=== PATIENT | male | born 1970 | race Caucasian/White ===

== ENCOUNTER 2016-06-19 02:45 | Inpatient (IN) | payer SELFPAY ==
[2016-06-19] VITALS (28 sets, daily range): BP systolic 110–156; BP diastolic 63–91
[~2016-06-19] VITALS: Ht 175.3 cm; Wt 79.6 kg
[~2016-06-19 02:45] MED LIST: ALLO100T PO; ATOR10TA52 PO; CARV25TA55 PO; OXY5T GT
[2016-06-19] MEDS ORDERED: METOPROLOL TARTRATE 50 MG TAB ONE (04:08)
[2016-06-19] MEDS ORDERED: LORazepam 2MG/ML-1ML VIAL ONE (04:16)
[2016-06-19] MEDS ORDERED: SODIUM BICARBONATE 8.4% INJ 50ML SYRINGE ONE (04:23)
[2016-06-19] MEDS ORDERED: LORazepam 2MG/ML-1ML VIAL IV ONE ×2 (04:30→04:45)
[2016-06-19] MEDS ORDERED: ETOMIDATE (2MG/ML) 20ML VIAL IV ONE ×2 (04:35→06:15)
[2016-06-19] MEDS ORDERED: SUCCINYLCHOLINE CHLORIDE 20 MG/ML 10ML VIAL IV ONE ×2 (04:35→06:15)
[2016-06-19] MEDS ORDERED: METOPROLOL TARTRATE 50 MG TAB PO ONE (04:45)
[2016-06-19] MEDS ORDERED: MIDAZOLAM DRIP 100 mg/100mL NS 100 ML IV ONE (04:45)
[2016-06-19] MEDS ORDERED: SODIUM BICARBONATE 8.4 % INJ 50ML VIAL IV ONE ×3 (04:45→08:00)
[2016-06-19 04:48] LABS: Urine Bilirubin Negative (Negative); Urine Color Yellow (Yellow); Urine Hyaline Cast FEW /lpf (0 - 2); Urine Nitrite Negative (Negative); Urine RBC None Seen /hpf (0 - 3); Urine Squamous Epithelial Cell FEW /hpf (<5); Urine Urobilinogen Normal (Negative)
[2016-06-19 04:53] LABS: Urine Blood 1+ /uL (Negative); Urine Glucose 4+ mg/dL (Normal); Urine Ketone 1+ (Negative)
[2016-06-19] MEDS ORDERED: InsuLIN REG 1unit/0.01ml Soln (100units/ml) ONE (05:40)
[2016-06-19] MEDS ORDERED: InsuLIN REG 1unit/0.01ml Soln (100units/ml) IV ONE (06:00)
[2016-06-19] MEDS ORDERED: DEXTROSE (50%) 50ML SYRG IV PRN ×2 (06:00→18:30)
[2016-06-19] MEDS ORDERED: MIDAZOLAM INJECTION 20 MG in SODIUM CHL 0.9% 36 ML IV ONE (06:15)
[2016-06-19] MEDS: SODIUM CHLORIDE 0.9% 1,000 ML IV SCH ×4 (06:18→18:26)
[2016-06-19] MEDS: ACCU-CHEK COMFORT CURVE STRIP VI SCH ×18 (06:27→23:09)
[2016-06-19] MEDS ORDERED: InsuLIN R (HUMAN) 100 UNITS in SODIUM CHL 0.9% 99 ML IV SCH ×2 (06:30→18:19)
[2016-06-19] MEDS ORDERED: PROPOFOL 100 ML IV ONE (07:04)
[2016-06-19 07:23] LABS: Hematocrit 43.3 % (41.0-53.0); Hemoglobin 14.2 g/dL (13.5-17.5); Mean Corpuscular Hemoglobin 29.7 pg (28.0-32.0); Mean Corpuscular Hgb Conc. 32.9 g/dL (32.0-36.0); Mean Corpuscular Volume 90.4 fL (80.0-100.0); Mean Platelet Volume 9.3 fL (7.4-10.4); Platelet Count (auto) 270 10^3/uL (140-450); Red Cell Distribution Width 13.8 % (11.6-16.0); SUSPECT VIEW TRANSMISSION; White Blood Cell 21.5 10^3/uL (4.4-10.8)
[2016-06-19 07:26] LABS: BUN/Creatinine Ratio 18.4; Bilirubin, Total 0.6 mg/dL (0.2-1.0); Calcium 7.5 mg/dL (8.5-10.1); Potassium 4.9 mmol/L (3.5-5.1); Total Protein 5.8 g/dL (6.4-8.2)
[2016-06-19 07:28] LABS: INR 1.01 (0.9-1.15); Partial Thromboplastin Time 29.4 sec (22.64-33.71); Prothrombin Time 10.4 sec (9.37-12.3)
[2016-06-19] MEDS: PROPOFOL 100 ML IV SCH ×2 (07:29→21:00)
[2016-06-19 07:38] LABS: Metamyelocytes % 0; Myelocytes % 0; Promyelocytes % 0; Reactive Lymphocytes 0
[2016-06-19 07:44] LABS: Urine Bilirubin Negative (Negative); Urine Color Yellow (Yellow); Urine Nitrite Negative (Negative); Urine RBC 12 /hpf (0 - 3); Urine Squamous Epithelial Cell FEW /hpf (<5); Urine Urobilinogen Normal (Negative)
[2016-06-19 07:53] LABS: Urine Blood 1+ /uL (Negative); Urine Glucose 4+ mg/dL (Normal); Urine Ketone 1+ (Negative)
[2016-06-19] MEDS ORDERED: VANCOMYCIN 1GM/250ML D5W 250 ML IV ONE ×2 (08:00→10:00)
[2016-06-19] MEDS ORDERED: SODIUM CHLORIDE 0.9% 3,000 ML IV ONE (08:00)
[2016-06-19] MEDS ORDERED: SODIUM BICARBONATE 50ML VIAL 50 ML in SOD CHL 0.45% 1,000 ML IV ONE (08:00)
[2016-06-19] MEDS ORDERED: VANCOMYCIN PER PHARMACY 0 MG IV SCH (08:00)
[2016-06-19 08:10] LABS: Lactic Acid 5.5 mmol/L (0.4-2.0)
[2016-06-19 08:11] LABS: REFLEX LACTIC ACID YES OR NO YES
[2016-06-19] MEDS ORDERED: LACTULOSE 20Gm/30ML SOLN PO PRN (08:15)
[2016-06-19 08:21] LABS: Platelet Estimate Adequate
[2016-06-19 08:22] LABS: RBC Morphology Normal
[2016-06-19] MEDS ORDERED: ENOXAPARIN SOD 80 MG/0.8ML SYRINGE SC SCH (08:30)
[2016-06-19] MEDS: ENOXAPARIN SOD 80 MG/0.8ML SYRINGE SC SCH (08:43)
[2016-06-19 08:51] LABS: B-Type Natriuretic Peptide 87.33 pg/mL (0-100)
[2016-06-19 09:06] LABS: Temperature: 22.1 C (20.0-25.0)
[2016-06-19] MEDS ORDERED: SODIUM CHLORIDE 0.9% 1,000 ML IV SCH (09:46)
[2016-06-19] MEDS: LEVOFLOXACIN 500MG 100 ML IV SCH (09:59)
[2016-06-19] MEDS: MIDAZOLAM DRIP 100 mg/100mL NS 100 ML IV SCH (09:59)
[2016-06-19] MEDS: ENALAPRIL MALEATE 2.5 MG TAB PO SCH (10:00)
[2016-06-19] MEDS ORDERED: ENOXAPARIN SOD 30 MG/0.3 ML SYRINGE SC SCH (10:00)
[2016-06-19] MEDS: METOPROLOL TARTRATE 25 MG TAB PO SCH ×2 (10:00→22:00)
[2016-06-19 10:23] LABS: Lactic Acid 4.3 mmol/L (0.4-2.0)
[2016-06-19 10:25] LABS: REFLEX LACTIC ACID YES OR NO NO
[2016-06-19] MEDS: PANTOPRAZOLE SODIUM 40 MG/10 ML VIAL IV SCH (10:30)
[2016-06-19] MEDS: ASPirin 81 mg TAB PO SCH (10:40)
[2016-06-19 12:38] LABS: Lactic Acid 3.1 mmol/L (0.4-2.0)
[2016-06-19 12:42] LABS: REFLEX LACTIC ACID YES OR NO NO
[2016-06-19 12:52] LABS: BUN/Creatinine Ratio 19.4; Calcium 6.4 mg/dL (8.5-10.1)
[2016-06-19 13:06] LABS: Potassium 2.9 mmol/L (3.5-5.1)
[2016-06-19] MEDS: POTASSIUM CHL 20MEQ/100ML 100 ML IV SCH ×2 (13:56→15:45)
[2016-06-19] MEDS ORDERED: InsuLIN R (HUMAN) 100 UNITS in SODIUM CHL 0.9% 99 ML IV PRN ×2 (18:19→18:31)
[2016-06-19 18:26] LABS: BUN/Creatinine Ratio 18.8; Calcium 6.2 mg/dL (8.5-10.1); Potassium 3.4 mmol/L (3.5-5.1)
[2016-06-19] MEDS: ATORVASTATIN 20 MG TAB PO SCH (22:03)
[2016-06-19 22:52] LABS: BUN/Creatinine Ratio 19.7; Calcium 6.8 mg/dL (8.5-10.1)
[2016-06-20] VITALS (85 sets, daily range): BP systolic 102–199; BP diastolic 56–132
[2016-06-20] MEDS ORDERED: POTASSIUM CHL 20MEQ/100ML 200 ML IV ONE (00:13)
[2016-06-20] MEDS: POTASSIUM CHL 20MEQ/100ML 100 ML IV SCH ×5 (00:15→16:30)
[2016-06-20] MEDS: SODIUM CHLORIDE 0.9% 1,000 ML IV SCH ×4 (00:35→21:06)
[2016-06-20] MEDS: ACCU-CHEK COMFORT CURVE STRIP VI SCH ×13 (01:05→20:00)
[2016-06-20 04:22] LABS: Basophils # (auto) 0 uL; Basophils % (auto) 0.3 % (0.0-2.0); Eosinophils # (auto) 0.2 uL; Eosinophils % (auto) 1.6 % (0.0-7.0); Hematocrit 43.2 % (41.0-53.0); Hemoglobin 14.8 g/dL (13.5-17.5); Lymphocytes # (auto) 1.4 uL; Lymphocytes % (auto) 10.6 % (10.0-50.0); Mean Corpuscular Hemoglobin 29.8 pg (28.0-32.0); Mean Corpuscular Hgb Conc. 34.1 g/dL (32.0-36.0); Mean Corpuscular Volume 87.3 fL (80.0-100.0); Mean Platelet Volume 8.3 fL (7.4-10.4); Monocytes # (auto) 0.9 uL; Monocytes % (auto) 6.7 % (0.0-12.0); Neutrophils # (auto) 10.7 uL; Neutrophils % (auto) 80.8 % (37.0-80.0); Platelet Count (auto) 188 10^3/uL (140-450); Red Cell Distribution Width 13.8 % (11.6-16.0); White Blood Cell 13.3 10^3/uL (4.4-10.8)
[2016-06-20] MEDS: PROPOFOL 100 ML IV SCH (05:04)
[2016-06-20 05:22] LABS: Albumin 1.8 g/dL (3.4-5.0); BUN/Creatinine Ratio 19.1; Bilirubin, Total 0.3 mg/dL (0.2-1.0); Calcium 7.2 mg/dL (8.5-10.1); Magnesium 2.2 mg/dL (1.6-2.6); Potassium 3.4 mmol/L (3.5-5.1); Total Protein 5.1 g/dL (6.4-8.2)
[2016-06-20] MEDS: MIDAZOLAM DRIP 100 mg/100mL NS 100 ML IV SCH (06:38)
[2016-06-20] MEDS: ENOXAPARIN SOD 80 MG/0.8ML SYRINGE SC SCH (08:15)
[2016-06-20] MEDS: LEVOFLOXACIN 500MG 100 ML IV SCH (08:15)
[2016-06-20] MEDS ORDERED: VANCOMYCIN 1GM/250ML D5W 250 ML IV ONE ×2 (08:45→10:00)
[2016-06-20] MEDS: PANTOPRAZOLE SODIUM 40 MG/10 ML VIAL IV SCH (09:42)
[2016-06-20] MEDS: LEVOFLOXACIN 250MG 50 ML IV SCH (09:42)
[2016-06-20] MEDS: ENALAPRIL MALEATE 2.5 MG TAB PO SCH (09:43)
[2016-06-20] MEDS: METOPROLOL TARTRATE 25 MG TAB PO SCH ×2 (09:43→21:37)
[2016-06-20] MEDS: ASPirin 81 mg TAB PO SCH (09:43)
[2016-06-20] MEDS ORDERED: INSULIN DETEMIR(LEVEMIR) 1unit/0.01ml Soln (100units/ml) SC ONE (11:00)
[2016-06-20] MEDS ORDERED: METOPROLOL TARTRATE 1MG/1ML-5ML VIAL IV PRN (11:30)
[2016-06-20] MEDS ORDERED: DEXTROSE (50%) 50ML SYRG IV PRN (13:30)
[2016-06-20 13:43] LABS: Basophils # (auto) 0 uL; Basophils % (auto) 0.3 % (0.0-2.0); Eosinophils # (auto) 0.1 uL; Eosinophils % (auto) 0.9 % (0.0-7.0); Hematocrit 40.8 % (41.0-53.0); Hemoglobin 13.9 g/dL (13.5-17.5); Lymphocytes # (auto) 1.2 uL; Lymphocytes % (auto) 9.2 % (10.0-50.0); Mean Corpuscular Hemoglobin 29.7 pg (28.0-32.0); Mean Corpuscular Volume 87.3 fL (80.0-100.0); Mean Platelet Volume 8.8 fL (7.4-10.4); Monocytes # (auto) 0.7 uL; Monocytes % (auto) 5.2 % (0.0-12.0); Neutrophils % (auto) 84.4 % (37.0-80.0); Platelet Count (auto) 177 10^3/uL (140-450); Red Cell Distribution Width 14.1 % (11.6-16.0); White Blood Cell 13.1 10^3/uL (4.4-10.8)
[2016-06-20 14:04] LABS: Albumin 1.6 g/dL (3.4-5.0); BUN/Creatinine Ratio 18.7; Calcium 6.9 mg/dL (8.5-10.1); Potassium 3.3 mmol/L (3.5-5.1)
[2016-06-20 14:07] LABS: Bilirubin, Total 0.3 mg/dL (0.2-1.0); Total Protein 4.9 g/dL (6.4-8.2)
[2016-06-20] MEDS: InsuLIN REG 1unit/0.01ml Soln (100units/ml) SC SCH ×2 (16:00→20:00)
[2016-06-20] MEDS: ATORVASTATIN 20 MG TAB PO SCH (21:37)
[2016-06-21] VITALS (38 sets, daily range): BP systolic 106–169; BP diastolic 46–101
[2016-06-21] MEDS: ALBUTEROL SULF 2.5 MG/0.5ML(0.5%) NEB SOLN NEB SCH ×4 (00:16→18:50)
[2016-06-21 03:52] LABS: Basophils # (auto) 0 uL; Basophils % (auto) 0.4 % (0.0-2.0); Eosinophils # (auto) 0 uL; Eosinophils % (auto) 0.5 % (0.0-7.0); Hematocrit 38.8 % (41.0-53.0); Hemoglobin 13.3 g/dL (13.5-17.5); Lymphocytes % (auto) 11.3 % (10.0-50.0); Mean Corpuscular Hemoglobin 29.6 pg (28.0-32.0); Mean Corpuscular Hgb Conc. 34.2 g/dL (32.0-36.0); Mean Corpuscular Volume 86.7 fL (80.0-100.0); Mean Platelet Volume 8.8 fL (7.4-10.4); Monocytes # (auto) 0.6 uL; Monocytes % (auto) 6.9 % (0.0-12.0); Neutrophils # (auto) 6.9 uL; Neutrophils % (auto) 80.9 % (37.0-80.0); Platelet Count (auto) 127 10^3/uL (140-450); Red Cell Distribution Width 14.4 % (11.6-16.0); White Blood Cell 8.5 10^3/uL (4.4-10.8)
[2016-06-21] MEDS: InsuLIN REG 1unit/0.01ml Soln (100units/ml) SC SCH ×5 (04:00→20:30)
[2016-06-21] MEDS: ACCU-CHEK COMFORT CURVE STRIP VI SCH ×5 (04:00→20:00)
[2016-06-21 05:13] LABS: Albumin 1.6 g/dL (3.4-5.0); Calcium 7.4 mg/dL (8.5-10.1); Potassium 3.5 mmol/L (3.5-5.1)
[2016-06-21 05:15] LABS: Bilirubin, Total 0.4 mg/dL (0.2-1.0); Total Protein 4.8 g/dL (6.4-8.2)
[2016-06-21] MEDS: MIDAZOLAM DRIP 100 mg/100mL NS 100 ML IV SCH (06:38)
[2016-06-21] MEDS: PROPOFOL 100 ML IV SCH (07:29)
[2016-06-21] MEDS: SODIUM CHLORIDE 0.9% 1,000 ML IV SCH (08:33)
[2016-06-21] MEDS: ASPirin 81 mg TAB PO SCH (09:53)
[2016-06-21] MEDS: METOPROLOL TARTRATE 25 MG TAB PO SCH ×2 (09:53→21:34)
[2016-06-21] MEDS: LEVOFLOXACIN 250MG 50 ML IV SCH (09:54)
[2016-06-21] MEDS: ENALAPRIL MALEATE 2.5 MG TAB PO SCH (09:54)
[2016-06-21] MEDS: PANTOPRAZOLE SODIUM 40 MG/10 ML VIAL IV SCH (09:54)
[2016-06-21] MEDS ORDERED: ENOXAPARIN SOD 80 MG/0.8ML SYRINGE SC SCH (10:00)
[2016-06-21] MEDS ORDERED: VANCOMYCIN 1GM/250ML D5W 250 ML IV SCH (11:00)
[2016-06-21] MEDS ORDERED: DEXTROSE (50%) 50ML SYRG IV PRN (11:15)
[2016-06-21] MEDS ORDERED: LORazepam 0.5 MG TAB PO ONE (11:15)
[2016-06-21] MEDS ORDERED: LORazepam 0.5 MG TAB PO PRN (11:15)
[2016-06-21] MEDS ORDERED: HYDROcodone-ACET 10/325MG TAB PO ONE (11:15)
[2016-06-21] MEDS ORDERED: SODIUM CHLORIDE 0.9% 1,000 ML IV SCH (11:46)
[2016-06-21] MEDS: GABAPENTIN 300 MG CAP PO SCH ×2 (14:09→21:33)
[2016-06-21 15:31] LABS: Hepatitis B Surface Antibody Negative
[2016-06-21] MEDS: ATORVASTATIN 20 MG TAB PO SCH (21:33)
[2016-06-21] MEDS ORDERED: INSULIN DETEMIR(LEVEMIR) 1unit/0.01ml Soln (100units/ml) SC SCH (22:00)
[2016-06-22] VITALS (29 sets, daily range): BP systolic 114–168; BP diastolic 68–111
[2016-06-22] MEDS: InsuLIN REG 1unit/0.01ml Soln (100units/ml) SC SCH ×5 (00:04→21:28)
[2016-06-22] MEDS: ALBUTEROL SULF 2.5 MG/0.5ML(0.5%) NEB SOLN NEB SCH ×4 (00:42→20:15)
[2016-06-22 04:21] LABS: Basophils # (auto) 0 uL; Basophils % (auto) 0.4 % (0.0-2.0); Eosinophils # (auto) 0.2 uL; Hematocrit 41.8 % (41.0-53.0); Hemoglobin 14.7 g/dL (13.5-17.5); Lymphocytes # (auto) 1.3 uL; Lymphocytes % (auto) 16.2 % (10.0-50.0); Mean Corpuscular Hemoglobin 30.4 pg (28.0-32.0); Mean Corpuscular Hgb Conc. 35.2 g/dL (32.0-36.0); Mean Corpuscular Volume 86.4 fL (80.0-100.0); Mean Platelet Volume 9.6 fL (7.4-10.4); Monocytes # (auto) 0.5 uL; Monocytes % (auto) 6.1 % (0.0-12.0); Neutrophils # (auto) 5.8 uL; Neutrophils % (auto) 74.3 % (37.0-80.0); Platelet Count (auto) 125 10^3/uL (140-450); Red Cell Distribution Width 13.8 % (11.6-16.0); White Blood Cell 7.9 10^3/uL (4.4-10.8)
[2016-06-22] MEDS: ACCU-CHEK COMFORT CURVE STRIP VI SCH ×5 (04:27→21:29)
[2016-06-22 04:36] LABS: Lactic Acid 2.2 mmol/L (0.4-2.0)
[2016-06-22 04:45] LABS: REFLEX LACTIC ACID YES OR NO NO
[2016-06-22] MEDS: HYDROcodone-ACET 10/325MG TAB PO PRN ×3 (04:46→17:46)
[2016-06-22 04:53] LABS: Albumin 1.6 g/dL (3.4-5.0); BUN/Creatinine Ratio 18.1; Bilirubin, Total 0.3 mg/dL (0.2-1.0); Calcium 7.8 mg/dL (8.5-10.1); Total Protein 5.6 g/dL (6.4-8.2)
[2016-06-22 05:03] LABS: Potassium 2.8 mmol/L (3.5-5.1)
[2016-06-22] MEDS ORDERED: POTASSIUM CHL 20 Meq TABLET PO ONE ×2 (05:45→14:15)
[2016-06-22] MEDS: GABAPENTIN 300 MG CAP PO SCH ×2 (06:12→14:00)
[2016-06-22] MEDS ORDERED: DEXTROSE (50%) 50ML SYRG IV PRN (10:00)
[2016-06-22] MEDS ORDERED: ENOXAPARIN SOD 80 MG/0.8ML SYRINGE SC SCH (10:00)
[2016-06-22] MEDS: ASPirin 81 mg TAB PO SCH (10:57)
[2016-06-22] MEDS: ENALAPRIL MALEATE 2.5 MG TAB PO SCH (10:58)
[2016-06-22] MEDS: LEVOFLOXACIN 250MG 50 ML IV SCH (11:03)
[2016-06-22] MEDS: PANTOPRAZOLE 40 MG TAB PO SCH (11:03)
[2016-06-22] MEDS: SODIUM CHLORIDE 0.9% 1,000 ML IV SCH (11:32)
[2016-06-22] MEDS ORDERED: ENOXAPARIN SOD 40 MG/0.4 ML SYRINGE SC ONE (11:45)
[2016-06-22] MEDS: VANCOMYCIN 1,250 MG in D5W 5% 250 ML IV SCH (12:41)
[2016-06-22] MEDS: METOPROLOL TARTRATE 25 MG TAB PO SCH (12:50)
[2016-06-22] MEDS ORDERED: ALPRAZolam 0.5 MG TAB PO PRN (17:30)
[2016-06-22] MEDS ORDERED: OXYCODONE W/ ACETAMINOPHEN 5/325MG TABLET PO PRN (17:30)
[2016-06-22] MEDS: ALLOPURINOL 100 MG TAB PO SCH (18:50)
[2016-06-22] MEDS ORDERED: LEVO100T8 PO (19:30)
[2016-06-22] MEDS ORDERED: PERCOT PO (19:30)
[2016-06-22] MEDS ORDERED: PREG150C PO (19:30)
[2016-06-22] MEDS ORDERED: ALPR1TAB2 PO (19:30)
[2016-06-22] MEDS: INSULIN DETEMIR(LEVEMIR) 1unit/0.01ml Soln (100units/ml) SC SCH (21:29)
[2016-06-22] MEDS: PREGABALIN CAPSULE 75 MG CAP PO SCH (22:00)
[2016-06-22] MEDS: CARVEDILOL 12.5 MG TAB PO SCH (22:00)
[2016-06-22] MEDS: ATORVASTATIN 20 MG TAB PO SCH (22:00)
[2016-06-23] VITALS (13 sets, daily range): BP systolic 128–152; BP diastolic 71–113
[2016-06-23] MEDS: SODIUM CHLORIDE 0.9% 1,000 ML IV SCH (00:33)
[2016-06-23] MEDS: HYDROcodone-ACET 10/325MG TAB PO PRN ×2 (02:08→10:00)
[2016-06-23 03:58] LABS: BUN/Creatinine Ratio 14.5; Potassium 3.1 mmol/L (3.5-5.1)
[2016-06-23] MEDS: VANCOMYCIN 1,250 MG in D5W 5% 250 ML IV SCH (05:15)
[2016-06-23] MEDS: ALBUTEROL SULF 2.5 MG/0.5ML(0.5%) NEB SOLN NEB SCH ×2 (06:18)
[2016-06-23] MEDS: InsuLIN REG 1unit/0.01ml Soln (100units/ml) SC SCH (06:24)
[2016-06-23] MEDS ORDERED: POTASSIUM CHL 20 Meq TABLET PO ONE (06:30)
[2016-06-23] MEDS ORDERED: LEVOTHYROXINE SODIUM 100 MCG TAB PO SCH (07:00)
[2016-06-23] MEDS: ACCU-CHEK COMFORT CURVE STRIP VI SCH (07:00)
[2016-06-23] MEDS: ALLOPURINOL 100 MG TAB PO SCH (09:19)
[2016-06-23] MEDS: PREGABALIN CAPSULE 75 MG CAP PO SCH (09:19)
[2016-06-23] MEDS: ENALAPRIL MALEATE 2.5 MG TAB PO SCH (09:19)
[2016-06-23] MEDS: ASPirin 81 mg TAB PO SCH (09:19)
[2016-06-23] MEDS: CARVEDILOL 12.5 MG TAB PO SCH (09:20)
[2016-06-23] MEDS: PANTOPRAZOLE 40 MG TAB PO SCH (09:20)
[2016-06-23] MEDS: INSULIN DETEMIR(LEVEMIR) 1unit/0.01ml Soln (100units/ml) SC SCH (09:23)
[2016-06-23] MEDS ORDERED: ENOXAPARIN SOD 40 MG/0.4 ML SYRINGE SC SCH (10:00)
[2016-06-23] MEDS ORDERED: LEVOFLOXACIN 750MG 150 ML IV SCH (10:00)
[2016-06-23] MEDS ORDERED: LEVO750T3 PO (10:01)
[2016-06-23] MEDS ORDERED: CARV25TA55 PO (10:01)
[2016-06-23] MEDS ORDERED: LEVO100T8 PO (10:01)
[2016-06-23] MEDS ORDERED: ATOR20TA50 PO (10:01)
[2016-06-23] MEDS ORDERED: ASPI81CH43 PO (10:01)
[2016-06-23] MEDS ORDERED: INSUINJ37 SC (10:07)
== END 2016-06-23 11:25 | disposition home or self-care (01) | DRG 871 ==
LOC: EDBD 02:45 → ER 02:45 → TELE 02:46 → ICU WEST 17:19
PROVIDERS: ADMIT Family Medicine; ATTEND Internal Medicine
PROC: 5A1945Z Respiratory Ventilation, 24-96 Consecutive Hours (ICD-10-PCS; principal; 2016-06-19)
PROC: 0BH17EZ Insertion of Endotracheal Airway into Trachea, Via Natural or Artificial Opening (ICD-10-PCS; 2016-06-19)
DX: A41.9 Sepsis, unspecified organism (principal); R65.21 Severe sepsis with septic shock; N17.0 Acute kidney failure with tubular necrosis; J96.00 Acute respiratory failure, unspecified whether with hypoxia or hypercapnia; E13.10 Other specified diabetes mellitus with ketoacidosis without coma; G93.41 Metabolic encephalopathy; E87.2 Acidosis; N39.0 Urinary tract infection, site not specified; E87.1 Hypo-osmolality and hyponatremia; I42.0 Dilated cardiomyopathy; I13.0 Hypertensive heart and chronic kidney disease with heart failure and stage 1 through stage 4 chronic kidney disease, or unspecified chronic kidney disease; N18.9 Chronic kidney disease, unspecified; E11.22 Type 2 diabetes mellitus with diabetic chronic kidney disease; E11.21 Type 2 diabetes mellitus with diabetic nephropathy; D64.9 Anemia, unspecified; E87.6 Hypokalemia; E86.0 Dehydration; E78.5 Hyperlipidemia, unspecified; F41.9 Anxiety disorder, unspecified; F15.10 Other stimulant abuse, uncomplicated; F17.210 Nicotine dependence, cigarettes, uncomplicated; I50.9 Heart failure, unspecified; E03.9 Hypothyroidism, unspecified; F12.10 Cannabis abuse, uncomplicated; J44.9 Chronic obstructive pulmonary disease, unspecified; Z59.0 Homelessness; Z79.4 Long term (current) use of insulin; Z82.49 Family history of ischemic heart disease and other diseases of the circulatory system; Z83.3 Family history of diabetes mellitus; Z86.73 Personal history of transient ischemic attack (TIA), and cerebral infarction without residual deficits; I25.2 Old myocardial infarction; Z91.19 Patient's noncompliance with other medical treatment and regimen; Z95.0 Presence of cardiac pacemaker; Z95.810 Presence of automatic (implantable) cardiac defibrillator; Z91.14 Patient's other noncompliance with medication regimen
CPT/HCPCS: 36415; 36600; 51702; 70450; 71010; 80048; 80053; 80061; 80202; 81001; 82010; 82805; 82947; 82962; 83036; 83605; 83735; 83880; 83930; 84300; 84443; 84484; 85007; 85025; 85027; 85379; 85610; 85730; 86704; 86706; 86708; 86803; 87040; 87070; 87077; 87081; 87086; 87186; 87205; 87340; 87400; 93005; 93306; 93970; 94002; 94003; 94640; 96365; 96366; 96367; 96368; 96375; 97001; 99291; A4565; C9113; G0434; J0330; J1815; J1956; J2250; J2704; J3480; J7060

== ENCOUNTER 2016-08-02 00:39 | Emergency (ER) | payer MEDICAID ==
[~2016-08-02] VITALS: Ht 172.7 cm; Wt 83.9 kg
[~2016-08-02 00:39] MED LIST changes: +ALPR1TAB2 PO; +ASPI81CH43 PO; -ATOR10TA52 PO; +ATOR20TA50 PO; +INSUINJ37 SC; +LEVO100T8 PO; +LEVO750T3 PO; -OXY5T GT; +PERCOT PO; +PREG150C PO
[2016-08-02 01:36] LABS: Basophils # (auto) 0 uL; Basophils % (auto) 0.4 % (0.0-2.0); Eosinophils # (auto) 0.5 uL; Hematocrit 30.4 % (41.0-53.0); Hemoglobin 10.3 g/dL (13.5-17.5); Lymphocytes # (auto) 2.3 uL; Lymphocytes % (auto) 30.7 % (10.0-50.0); Mean Corpuscular Hemoglobin 29.8 pg (28.0-32.0); Mean Corpuscular Hgb Conc. 33.9 g/dL (32.0-36.0); Mean Corpuscular Volume 87.7 fL (80.0-100.0); Mean Platelet Volume 9.3 fL (7.4-10.4); Monocytes # (auto) 0.8 uL; Monocytes % (auto) 10.3 % (0.0-12.0); Neutrophils # (auto) 3.9 uL; Neutrophils % (auto) 51.6 % (37.0-80.0); Platelet Count (auto) 186 10^3/uL (140-450); Red Cell Distribution Width 14.4 % (11.6-16.0); White Blood Cell 7.6 10^3/uL (4.4-10.8)
[2016-08-02 02:38] LABS: Albumin 2.3 g/dL (3.4-5.0); BUN/Creatinine Ratio 23.6; Calcium 7.7 mg/dL (8.5-10.1); Potassium 4.9 mmol/L (3.5-5.1)
[2016-08-02 02:40] LABS: Bilirubin, Total 0.2 mg/dL (0.2-1.0); Total Protein 5.8 g/dL (6.4-8.2)
[2016-08-02 05:54] VITALS: BP 145/89
[2016-08-02] MEDS ORDERED: HYDROcodone-ACET 10/325MG TAB PO ONE (06:45)
== END 2016-08-02 06:57 | disposition home or self-care (01) ==
LOC: ER 00:41
DX: S83.91XA Sprain of unspecified site of right knee, initial encounter (principal); F17.210 Nicotine dependence, cigarettes, uncomplicated; F15.10 Other stimulant abuse, uncomplicated; E11.9 Type 2 diabetes mellitus without complications; I11.0 Hypertensive heart disease with heart failure; I50.9 Heart failure, unspecified; E78.5 Hyperlipidemia, unspecified; E07.9 Disorder of thyroid, unspecified; M10.9 Gout, unspecified; Z79.4 Long term (current) use of insulin; V09.9XXA Pedestrian injured in unspecified transport accident, initial encounter; Y93.89 Activity, other specified; Y99.8 Other external cause status; Y92.89 Other specified places as the place of occurrence of the external cause; Z79.82 Long term (current) use of aspirin; Z86.73 Personal history of transient ischemic attack (TIA), and cerebral infarction without residual deficits; Z88.0 Allergy status to penicillin; Z95.810 Presence of automatic (implantable) cardiac defibrillator
CPT/HCPCS: 29505; 36415; 72125; 73562; 80053; 85025

== ENCOUNTER 2016-08-12 18:33 | Emergency (ER) | payer MEDICAID ==
[~2016-08-12] VITALS: Ht 172.7 cm; Wt 78.0 kg
[2016-08-12 18:43] VITALS: BP 103/72
[2016-08-12] MEDS ORDERED: KETOROLAC TROMETH 60MG/2ML VIAL IM ONE (19:15)
== END 2016-08-12 20:03 | disposition home or self-care (01) ==
LOC: ER 18:33
CPT/HCPCS: 96372 ×2; 99283; J1885 ×2

== ENCOUNTER 2016-09-12 21:36 | Emergency (ER) | payer MEDICAID ==
[~2016-09-12] VITALS: Ht 175.3 cm; Wt 79.4 kg
[2016-09-12 22:20] LABS: Basophils # (auto) 0.1 uL; Basophils % (auto) 0.7 % (0.0-2.0); DEFINITIVE VIEW TRANSMISSION; Eosinophils # (auto) 0.7 uL; Hematocrit 33.5 % (41.0-53.0); Hemoglobin 11.5 g/dL (13.5-17.5); Lymphocytes # (auto) 2.1 uL; Lymphocytes % (auto) 25.1 % (10.0-50.0); Mean Corpuscular Hemoglobin 30.6 pg (28.0-32.0); Mean Corpuscular Hgb Conc. 34.2 g/dL (32.0-36.0); Mean Corpuscular Volume 89.6 fL (80.0-100.0); Mean Platelet Volume 7.9 fL (7.4-10.4); Monocytes # (auto) 0.7 uL; Monocytes % (auto) 8.8 % (0.0-12.0); Neutrophils # (auto) 4.6 uL; Neutrophils % (auto) 56.4 % (37.0-80.0); Platelet Count (auto) 298 10^3/uL (140-450); Red Cell Distribution Width 14.4 % (11.6-16.0); White Blood Cell 8.2 10^3/uL (4.4-10.8)
[2016-09-12 22:44] LABS: Partial Thromboplastin Time 22.6 sec (22.64-33.71)
[2016-09-12 22:47] LABS: INR 0.85 (0.9-1.15); Prothrombin Time 9.3 sec (9.37-12.3)
[2016-09-12 22:50] LABS: Albumin 1.9 g/dL (3.4-5.0); Anion Gap 14 (5-15); Aspartate Aminotransferase 39 U/L (15-37); BUN/Creatinine Ratio 17.1; Blood Urea Nitrogen 25 mg/dL (7-18); Calcium 8.3 mg/dL (8.5-10.1); Carbon Dioxide 21 mmol/L (21-32); Chloride 103 mmol/L (98-107); GFR African American 66 mL/min; GFR Non-African American 55 mL/min; Glucose 201 mg/dL (74-106); Potassium 3.4 mmol/L (3.5-5.1); Sodium 138 mmol/L (136-145)
[2016-09-12 22:55] LABS: Alkaline Phosphatase 243 U/L (45-117); Bilirubin, Total < 0.1 mg/dL (0.2-1.0); Total Protein 5.6 g/dL (6.4-8.2)
[2016-09-12 23:35] LABS: B-Type Natriuretic Peptide 18.82 pg/mL (0-100)
[2016-09-12 23:37] LABS: Temperature: 22.9 C (20.0-25.0)
[2016-09-13 01:01] VITALS: BP 142/81
[2016-09-13] MEDS ORDERED: LORazepam 2MG/ML-1ML VIAL IV ONE (01:30)
[2016-09-13] MEDS ORDERED: ASPirin 81 mg TAB PO ONE (01:30)
== END 2016-09-13 02:33 | disposition home or self-care (01) ==
LOC: EDBD 21:36 → ER 21:42
DX: R07.89 Other chest pain (principal); E43 Unspecified severe protein-calorie malnutrition; Z68.25 Body mass index [BMI] 25.0-25.9, adult; I11.0 Hypertensive heart disease with heart failure; I50.9 Heart failure, unspecified; E11.9 Type 2 diabetes mellitus without complications; M10.9 Gout, unspecified; E78.5 Hyperlipidemia, unspecified; E07.9 Disorder of thyroid, unspecified; Z90.49 Acquired absence of other specified parts of digestive tract; F17.210 Nicotine dependence, cigarettes, uncomplicated; F12.10 Cannabis abuse, uncomplicated; Z88.0 Allergy status to penicillin; Z79.899 Other long term (current) drug therapy; F15.10 Other stimulant abuse, uncomplicated; Z79.4 Long term (current) use of insulin; Z79.82 Long term (current) use of aspirin
CPT/HCPCS: 36415; 71010; 80053; 80307; 83880; 84484; 85025; 85610; 85730; 93005; 96374; 99285; J2060

== ENCOUNTER 2016-12-05 21:46 | Emergency (ER) | payer MEDICAID ==
[~2016-12-05] VITALS: Ht 160 cm; Wt 77.1 kg
[~2016-12-05 21:46] MED LIST changes: +LEVO750T2 PO; -LEVO750T3 PO
[2016-12-05] MEDS ORDERED: DEXTROSE 50% SYRINGE 50 ML IV ONE (22:13)
[2016-12-05] MEDS ORDERED: SODIUM CHLORIDE 0.9% 1,000 ML IVB ONE (22:25)
[2016-12-05] MEDS ORDERED: DEXTROSE (50%) 50ML SYRG IV ONE (22:30)
[2016-12-05 22:32] LABS: Basophils # (auto) 0.1 uL; Basophils % (auto) 0.6 % (0.0-2.0); CONDITION Y; Eosinophils # (auto) 0.5 uL; Eosinophils % (auto) 6.1 % (0.0-7.0); Hematocrit 50.3 % (41.0-53.0); Hemoglobin 17.3 g/dL (13.5-17.5); Lymphocytes # (auto) 2.4 uL; Lymphocytes % (auto) 26.2 % (10.0-50.0); Mean Corpuscular Hemoglobin 30.6 pg (28.0-32.0); Mean Corpuscular Hgb Conc. 34.4 g/dL (32.0-36.0); Mean Corpuscular Volume 88.9 fL (80.0-100.0); Mean Platelet Volume 8.6 fL (7.4-10.4); Monocytes # (auto) 0.6 uL; Monocytes % (auto) 6.5 % (0.0-12.0); Neutrophils # (auto) 5.4 uL; Neutrophils % (auto) 60.6 % (37.0-80.0); Platelet Count (auto) 323 10^3/uL (140-450); Red Cell Distribution Width 12.9 % (11.6-16.0)
[2016-12-05] MEDS ORDERED: NIFEdipine 10 MG CAP PO ONE (22:45)
[2016-12-05 22:50] LABS: Anion Gap 13 (5-15); Blood Urea Nitrogen 32 mg/dL (7-18); Calcium 9.7 mg/dL (8.5-10.1); Carbon Dioxide 25 mmol/L (21-32); Chloride 98 mmol/L (98-107); INR 0.86 (0.9-1.15); Partial Thromboplastin Time 24.3 sec (22.64-33.71); Prothrombin Time 9.4 sec (9.37-12.3); Sodium 136 mmol/L (136-145)
[2016-12-05 22:53] LABS: Alkaline Phosphatase 213 U/L (45-117); Aspartate Aminotransferase 38 U/L (15-37); BUN/Creatinine Ratio 13.9; Bilirubin, Total 0.4 mg/dL (0.2-1.0); GFR African American 39 mL/min; GFR Non-African American 32 mL/min; Glucose 42 mg/dL (74-106); Potassium 2.8 mmol/L (3.5-5.1)
[2016-12-05] MEDS ORDERED: POTASSIUM CHL 10% (20 MEQ/15ML) ORAL SOLN PO ONE (23:00)
[2016-12-05 23:05] LABS: B-Type Natriuretic Peptide 18.98 pg/mL (0-100)
[2016-12-05 23:07] LABS: Temperature: 23.1 C (20.0-25.0)
[2016-12-06 00:16] VITALS: BP 154/106
== END 2016-12-06 02:54 | disposition home or self-care (01) ==
LOC: ER 21:47
DX: E11.649 Type 2 diabetes mellitus with hypoglycemia without coma (principal); E87.6 Hypokalemia; F19.10 Other psychoactive substance abuse, uncomplicated; I50.9 Heart failure, unspecified; I11.0 Hypertensive heart disease with heart failure; E78.5 Hyperlipidemia, unspecified; F17.210 Nicotine dependence, cigarettes, uncomplicated; Z79.4 Long term (current) use of insulin; Z79.82 Long term (current) use of aspirin; Z88.0 Allergy status to penicillin
CPT/HCPCS: 36415; 71010; 80053; 80307; 80320; 83735; 83880; 85025; 85610; 85730; 93005; 96361; 96374; 99285; J7040; J7042

== ENCOUNTER 2017-09-25 23:41 | Emergency (ER) | payer MEDICAID, OTHER ==
[~2017-09-25] VITALS: Ht 175.3 cm; Wt 99.8 kg
[2017-09-26 00:04] VITALS: BP 174/126
== END 2017-09-26 00:47 | disposition left against medical advice (07) ==
LOC: EDBD 23:41 → ER 23:41
DX: E16.2 Hypoglycemia, unspecified (principal); Z53.21 Procedure and treatment not carried out due to patient leaving prior to being seen by health care provider
CPT/HCPCS: 93005